=== PATIENT | male | born 1975 | race Hispanic/Latino ===

== ENCOUNTER 2017-03-14 14:46 | Emergency (ER) | payer MEDICAID ==
[2017-03-14 14:57] VITALS: BP 113/67; PULSE 67; RESP 18; TEMP 97.2; O2SAT 98
--- NOTE | 2017-03-14 15:23 | ED PDOC ---
HPI: Skin/Bite Injury Time Seen by Provider: 03/14/17 15:13 Chief Complaint (Nursing): Bite Chief Complaint (Provider): Bite History Per: Patient History/Exam Limitations: no limitations Onset/Duration Of Symptoms: Hrs (x1) Current Symptoms Are (Timing): Still Present Additional Complaint(s): Karan Barroso is a 41 year old male who presents to the emergency department for an evaluation of left ear laceration status post bite from his puppy while opening crate 1 hour prior to arrival. Denied pain or active bleeding at this time. Patient stated puppy is fully vaccinated but does not recall when patient himself had tetanus shot. PMD: Nhan Lau MD Past Medical History Reviewed: Historical Data, Nursing Documentation, Vital Signs Vital Signs: Last Vital Signs Temp 97.2 F L 03/14/17 14:56 Pulse 67 03/14/17 14:56 Resp 18 03/14/17 14:56 BP 113/67 03/14/17 14:56 Pulse Ox 98 03/14/17 15:32 - Medical History PMH: No Chronic Diseases - Surgical History Surgical History: No Surg Hx - Family History Family History: States: Unknown Family Hx - Social History Current smoker - smoking cessation education provided: No Ex-Smoker (has not smoked in the last 12 months): No Alcohol: None Drugs: Denies - Immunization History Hx Tetanus Toxoid Vaccination: No - Home Medications Home Medications: Ambulatory Orders Medication Instructions Recorded Amoxicillin/Clavulanate [Augmentin 1 tab PO BID #14 tab 03/14/17 875 MG-125 MG] - Allergies Allergies/Adverse Reactions: Allergies Allergy/AdvReac Type Severity Reaction Status Date / Time No Known Allergies Allergy Verified 03/14/17 14:56 Review of Systems ROS Statement: Except As Marked, All Systems Reviewed And Found Negative ENT: Positive for: Ear Pain (left sided laceration). Negative for: Other ( active bleeding) Physical Exam - Reviewed Nursing Documentation Reviewed: Yes Vital Signs Reviewed: Yes - Physical Exam Appears: Positive for: Well, Non-toxic, No Acute Distress Head Exam: Positive for: ATRAUMATIC, NORMAL INSPECTION, NORMOCEPHALIC ENT: Positive for: TM Is/Are (intact in left ear), Other (3cm C-shaped laceration over left preauricular fold with no active bleeding). Negative for: Normal ENT Inspection Cardiovascular/Chest: Positive for: Regular Rate, Rhythm, Chest Non Tender Respiratory: Positive for: Normal Breath Sounds. Negative for: Decreased Breath Sounds, Respiratory Distress Neurologic/Psych: Positive for: Alert (x3), Oriented - ECG O2 Sat by Pulse Oximetry: 98 (RA) Pulse Ox Interpretation: Normal Medical Decision Making Medical Decision Making: Initial Impression: Dog bite Initial Plan: Scribe Attestation: Documented by Cele Ulloa, acting as a scribe for Josee Hurtado Provider Scribe Attestation: All medical record entries made by the Scribe were at my direction and personally dictated by me. I have reviewed the chart and agree that the record accurately reflects my personal performance of the history, physical exam, medical decision making, and the department course for this patient. I have also personally directed, reviewed, and agree with the discharge instructions and disposition. Disposition - Clinical Impression Clinical Impression: Dog bite - Patient ED Disposition Is Patient to be Admitted: No - Disposition Disposition: Routine/Home Disposition Time: 15:40 Condition: STABLE Prescriptions: Amoxicillin/Clavulanate [Augmentin 875 MG-125 MG] 1 tab PO BID #14 tab Instructions: Animal Bite (ED) Forms: [employer] (L[place]ian)
[2017-03-14] MEDS ORDERED: Amoxicillin-Clav 250-125 mg Tab PO ONE (15:25)
[2017-03-14] MEDS ORDERED: Amoxicillin-Clav 875-125 mg Tab PO ONE (15:30)
[2017-03-14] MEDS: Amoxicillin-Clav 875-125 mg Tab PO STA (15:30)
== END 2017-03-14 15:43 | disposition home or self-care (01) ==
LOC: H.ER 14:46
DX: S01.312A Laceration without foreign body of left ear, initial encounter (principal); W54.0XXA Bitten by dog, initial encounter; Y92.89 Other specified places as the place of occurrence of the external cause